=== PATIENT | male | born 1995 | race African-American/Black ===

== ENCOUNTER 2022-01-17 11:53 | Emergency (ER) | payer MEDICAID ==
[~2022-01-17] VITALS: Ht 188 cm; Wt 100.0 kg
[2022-01-17 11:56] VITALS: BP 128/71
== END 2022-01-17 18:14 | disposition left against medical advice (07) ==
LOC: ER 11:53
DX: Z53.21 Procedure and treatment not carried out due to patient leaving prior to being seen by health care provider (principal)